=== PATIENT | male | born 1940 | race Caucasian/White ===

== ENCOUNTER 2018-07-02 01:15 | Inpatient (IN) | payer MEDICARE ==
[~2018-07-02] VITALS: Ht 190.5 cm; Wt 46.7 kg
[~2018-07-02 01:15] MED LIST: ALBU2.5V14 NEB; Albuterol Sulfate NEB; Amoxicillin/Potassium Clav PO; Fentanyl TD; HALOPERIDOL PO; HYDR-2761 PO; HYDR-3165 PO; HYDR12.575 PO; HYDR12.58 PO; Hydrocodone/Acetaminophen PO; LEVO500T59 PO; LISI10TA2 PO; METO-247 PO; METO-269 PO; MULT1TAB90 PO; Nicotine TD; PRED-220 PO; PRED20TA PO; SIMV20TA3 PO; TIOT18CA IH
[2018-07-02] MEDS ORDERED: fentaNYL PF VIAL 100 MCG/2 ML VIAL IV ONE (02:15)
--- NOTE | 2018-07-02 03:10 | RAD ---
INDICATION: trauma s/p fall rt sided COMPARISON: November 2013 TECHNIQUE: Axial CT images obtained through the head without intravenous contrast. One or more of the following individualized dose reduction techniques were utilized for this examination: 1. Automated exposure control; 2. Adjustment of the mA and/or kV according to patient size; 3. Use of iterative reconstruction technique. FINDINGS: No intracranial hemorrhage. No midline shift. Basal cisterns patents. Ventricles and sulci are globally prominent. No acute osseous abnormality. Orbits and paranasal sinuses unremarkable. Scattered foci of low attenuation within the white matter. There is a suspected small scalp hematoma frontally on the right IMPRESSION: 1. No acute intracranial hemorrhage. 2. Scattered regions of low attenuation within the white matter. Non-specific in nature but frequently secondary to chronic small vessel ischemic disease. 3. Prominence of ventricles and sulci which is frequently secondary to age related volume loss. Electronically signed by: Gilson Lynch MD (07/02/2018 3:07 AM) [facility]
[2018-07-02 03:12] LABS: BASO % 0 % (0-3); EOS % 0 % (0-3); HEMATOCRIT 31.9 % (39.0-53.0); HEMOGLOBIN 10.3 g/dL (13.0-17.5); LYMPH # 3.2 x10^3/uL (1.0-4.8); LYMPH % 26 % (24-48); MEAN CORPUSCULAR HEMOGLOBIN 32 pg (25-35); MEAN CORPUSCULAR HGB CONC 32 g/dL (31-37); MEAN CORPUSCULAR VOLUME 100 fL (79-100); MONO % 8 % (0-9); NEUT # 8.1 x10^3uL (1.8-7.7); NEUT % 66 % (31-73); PLATELET COUNT 266 x10^3/uL (140-400); RED BLOOD COUNT 3.18 x10^6/uL (4.30-5.70); WHITE BLOOD COUNT 12.4 x10^3/uL (4.0-11.0)
[2018-07-02 03:25] LABS: CALCIUM 9.6 mg/dL (8.5-10.1); CREATININE 1.4 mg/dL (0.7-1.3); GFR 49.3; POTASSIUM 5.2 mmol/L (3.5-5.1); PROTHROMBIN TIME PATIENT 12.9 SEC (11.7-14.0)
[2018-07-02 03:31] LABS: ALBUMIN 2.8 g/dL (3.4-5.0); ALBUMIN/GLOBULIN RATIO 0.7 (1.0-1.7); TOTAL BILIRUBIN 0.4 mg/dL (0.2-1.0); TOTAL PROTEIN 7.1 g/dL (6.4-8.2)
[2018-07-02] MEDS ORDERED: IV NORMAL SALINE 1000ML BAG 1,000 ML IV ONE (03:45)
--- NOTE | 2018-07-02 04:00 | PHYS DOC ---
Past Medical History Past Medical History: Asthma, CAD, Cancer, Hypertension Additional Past Medical Histor: 3 stent placements Past Surgical History: No Surgical History Additional Past Surgical Histo: 3 cardiac stents placed 10 years ago, skin flap skull 2 melanoma Additional Information: 20 CIGS /DAY Alcohol Use: None Additional Information: QIUT 2YRS AGO Drug Use: None Adult General Chief Complaint Chief Complaint: MECHANICAL FALL HPI HPI Patient is a 77 year old M BIBA with right hip pain. He's tripped over his own feet when he was trying to get into his car around 2 PM no syncope no chest pain he has mild stable shortness of breath that is unchanged he had been doing well recently no illnesses. He did hit his head no loss of consciousness. Complains of severe right hip pain worse with palpation and movement no a bdominal pain no neck pain Review of Systems Review of Systems Constitutional: Denies fever or chills [] Eyes: Denies change in visual acuity, redness, or eye pain [] HENT: Denies nasal congestion or sore throat [] Respiratory: Cardiovascular: No additional information not addressed in HPI [] GI: Denies abdominal pain, nausea, vomiting, bloody stools or diarrhea [] : Integument: Denies rash or skin lesions [] Neurologic: Denies headache, focal weakness or sensory changes [] All other systems were reviewed and found to be within normal limits, except as documented in this note. Current Medications Current Medications Current Medications Medications (Trade) Dose Ordered Sig/Tommie Start Time Stop Time Status Last Admin Dose Admin Fentanyl Citrate (Fentanyl 2ml Vial) 50 mcg PRN Q1HR PRN 07/02/18 04:00 07/03/18 03:59 UNV Sodium Chloride 1,000 ml @ 75 mls/hr 1X ONCE 07/02/18 03:45 07/02/18 17:04 Allergies Allergies Allergies Coded Allergies Type Severity Reaction Last Updated Verified morphine Adverse Reaction Intermediate 11/27/13 Yes Physical Exam Physical Exam Constitutional: Well developed, cachectic mild to moderate distress HENT: Normocephalic, atraumatic, bilateral external ears normal, oropharynx moist, no oral exudates, nose normal. [] Eyes: PERRLA, EOMI, conjunctiva normal, no discharge. [] Neck: Normal range of motion, no tenderness, supple, no stridor. [] Cardiovascular:Heart rate regular rhythm, no murmur [] Lungs & Thorax: Faint wheezes noted no chest wall trauma Abdomen: Bowel sounds normal, soft, no tenderness, no masses, no pulsatile masses. [] Skin: Warm, dry, no erythema, no rash. [] Back: No tenderness, no CVA tenderness. [] Extremities: There is a shortened and rotated right lower extremity tenderness at the right hip pedal pulses are intact sensation is grossly intact to light touch. Neurologic: Alert and oriented X 3, normal motor function, normal sensory function, no focal deficits noted. [] Psychologic: Affect normal, judgement normal, mood normal. [] Current Patient Data Vital Signs Vital Signs Date Time Temp Pulse Resp B/P (MAP) Pulse Ox O2 Delivery O2 Flow Rate FiO2 07/02/18 03:12 73 18 07/02/18 03:10 Room Air 07/02/18 01:25 98.0 191/77 (115) 90 98.0 Lab Values Laboratory Tests Test 07/02/18 03:00 White Blood Count 12.4 x10^3/uL (4.0-11.0) H Red Blood Count 3.18 x10^6/uL (4.30-5.70) L Hemoglobin 10.3 g/dL (13.0-17.5) L Hematocrit 31.9 % (39.0-53.0) L Mean Corpuscular Volume 100 fL (79-100) Mean Corpuscular Hemoglobin 32 pg (25-35) Mean Corpuscular Hemoglobin Concent 32 g/dL (31-37) Red Cell Distribution Width 15.0 % (11.5-14.5) H Platelet Count 266 x10^3/uL (140-400) Neutrophils (%) (Auto) 66 % (31-73) Lymphocytes (%) (Auto) 26 % (24-48) Monocytes (%) (Auto) 8 % (0-9) Eosinophils (%) (Auto) 0 % (0-3) Basophils (%) (Auto) 0 % (0-3) Neutrophils # (Auto) 8.1 x10^3uL (1.8-7.7) H Lymphocytes # (Auto) 3.2 x10^3/uL (1.0-4.8) Monocytes # (Auto) 1.0 x10^3/uL (0.0-1.1) Eosinophils # (Auto) 0.0 x10^3/uL (0.0-0.7) Basophils # (Auto) 0.0 x10^3/uL (0.0-0.2) Prothrombin Time 12.9 SEC (11.7-14.0) Prothrombin Time INR 1.0 (0.8-1.1) Sodium Level 144 mmol/L (136-145) Potassium Level 5.2 mmol/L (3.5-5.1) H Chloride Level 106 mmol/L (98-107) Carbon Dioxide Level 32 mmol/L (21-32) Anion Gap 6 (6-14) Blood Urea Nitrogen 29 mg/dL (8-26) H Creatinine 1.4 mg/dL (0.7-1.3) H Estimated GFR (Cockcroft-Gault) 49.3 BUN/Creatinine Ratio 21 (6-20) H Glucose Level 120 mg/dL (70-99) H Calcium Level 9.6 mg/dL (8.5-10.1) Total Bilirubin 0.4 mg/dL (0.2-1.0) Aspartate Amino Transferase (AST) 22 U/L (15-37) Alanine Aminotransferase (ALT) 21 U/L (16-63) Alkaline Phosphatase 58 U/L (46-116) Total Protein 7.1 g/dL (6.4-8.2) Albumin 2.8 g/dL (3.4-5.0) L Albumin/Globulin Ratio 0.7 (1.0-1.7) L Laboratory Tests 07/02/18 03:00 Laboratory Tests 07/02/18 03:00 EKG EKG []EKG shows a probably is normal sinus rhythm rate of 64 QRS is 140 left anterior fascicular block pattern no STEMI was identified Radiology/Procedures Radiology/Procedures []My interpretation of right hip showed fracture my interpretation of the chest x-ray showed no obvious pneumonia somewhat poor quality film there is a deep sulcus on the left but no pneumothorax was identified patient is not having any traumatic symptoms in that location Noted the head CT negative acute Impressions: IMPRESSION: 1. No acute intracranial hemorrhage. 2. Scattered regions of low attenuation within the white matter. Non-specific in nature but frequently secondary to chronic small vessel ischemic disease. 3. Prominence of ventricles and sulci which is frequently secondary to age related volume loss. Electronically signed by: Gilson Todd MD (07/02/2018 3:07 AM) [facility] Course & Med Decision Making Course & Med Decision Making Pertinent Labs and Imaging studies reviewed. (See chart for details) []Lab interpretation mild bump in the creatinine also mild bump in potassium both treated with gentle IV fluids. Hemoglobin stable blood count could be stress response from pain UA is pending. In summary this is a 77-year-old male cachectic history of cancer stent placement congestive heart failure broad and after mechanical fall found to have a right hip fracture. Remainder of the workup was nonacute at this time see above patient was treated with IV fentanyl in the emergency room with some improvement. Distal sensation was intact. Patient will be admitted to the service of Dr. Todd we have a page out to him at 4 AM as of this dictation. Consultation was placed in the computer for Dr. Medrano as well. Given patient's previous history likely will need medical clearance prior to emergency surgery. Dragon Disclaimer Dragon Disclaimer This electronic medical record was generated, in whole or in part, using a voice recognition dictation system. Departure Departure Impression: Primary Impression: Closed right hip fracture Disposition: ADMITTED INPATIENT Admitting Physician: Nikolay Todd Condition: STABLE Referrals: NIKOLAY TODD MD (PCP) MELANIE PAIGE MD Jul 02, 2018 04:00
[2018-07-02] MEDS: fentaNYL PF VIAL 100 MCG/2 ML VIAL IV PRN ×4 (04:12→15:29)
[2018-07-02 04:25] LABS: BILIRUBIN,URINE SMALL (NEG); CLARITY,URINE CLEAR; COLOR,URINE AMBER; NITRITE,URINE NEGATIVE (NEG); PROTEIN,URINE >=300 mg/dL (NEG-TRACE)
[2018-07-02] MEDS ORDERED: amLODIPine BESYLATE 5 MG TABLET PO ONE (04:30)
[2018-07-02 04:32] LABS: AMORPHOUS SEDIMENT,UR PRESENT /HPF; BACTERIA,URINE 0 /HPF (0-FEW); SQUAMOUS EPITHELIAL CELL,UR FEW /LPF
[2018-07-02 04:33] LABS: HYALINE CASTS, URINE MODERATE /HPF
[2018-07-02 05:22] VITALS: BP 179/63
--- NOTE | 2018-07-02 05:45 | NUR ---
The patient, MACK VALLES, 77 y/o, M admitted by NIKOLAY TODD MD, was given written information regarding hospital policies, unit procedures and contact persons. Patient was transported from ED to room 402 via bed. RN performed a head to toe assessment at that time, pain rated an 8/10. Bed is in lowest locked position, call light within reach. Valuables were checked and left in the room with patient.
[2018-07-02 07:00] VITALS: BP 147/61
--- NOTE | 2018-07-02 07:46 | RAD ---
Examination: PORTABLE CHEST 1V History: PRE-OP DUE TO FALL RT HIP PAIN Comparison/Correlation: 07/04/2015 portable chest x-ray exam Findings: Supine portable frontal view of the chest was obtained. Heart size is normal. No infiltrate or pleural effusion. Right upper lung field calcified granulomas present. No pneumothorax but the patient supine limiting assessment. Degenerative changes of the low thoracic upper lumbar spine noted. Lateral aspect of the left lower bony thorax was not fully included. Impression: No active disease. Electronically signed by: Junaid Guevara MD (07/02/2018 7:43 AM) [facility]
--- NOTE | 2018-07-02 08:13 | EKG ---
[facility] [address] [place] [address] Test Date: 2018-07-02 Test Time: 03:28:27 Pat Name: MACK VALLES Department: Room: 402 1 Gender: M [employer] Teacher: : 1940 Requested By: MELANIE PAIGE Order Number: [id number] Reading MD: John Campbell Measurements Intervals [place] Rate: 64 P: -75 OR: 144 QRS: -51 QRSD: 140 T: 103 QT: 404 QTc: 421 Interpretive Statements SINUS RHYTHM ABNORMAL LEFT AXIS DEVIATION LEFT ANTERIOR FASCICULAR BLOCK NON SPECIFIC INTRAVENTRICULAR BLOCK QRS(T) CONTOUR ABNORMALITY CONSISTENT WITH SEPTAL INFARCT PROBABLY OLD Electronically Signed On 07-09-2018 11:34:35 CDT by John Campbell
--- NOTE | 2018-07-02 08:36 | PDOC ---
Provider Note Provider Note [id number] NIKOLAY TODD MD Jul 02, 2018 08:36
--- NOTE | 2018-07-02 08:47 | RAD ---
AP view of the pelvis and two-view study of the right hip Clinical indications: Fall with right-sided hip pain FINDINGS: There is a comminuted intertrochanteric fracture of proximal right femur. The shaft is displaced laterally and superiorly with respect to the femoral head. 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 No other fracture of the pelvic bones is seen. No diastases of the symphysis pubis or either SI joint is seen. No lytic process is evident. IMPRESSION: Posttraumatic comminuted intertrochanteric fracture of the proximal right femur. Electronically signed by: Misha Yao MD (07/02/2018 8:44 AM) [facility]
[2018-07-02] MEDS: HYDROcodone/APAP 7.5/325MG 1 TAB TABLET PO SCH ×4 (09:00→21:00)
--- NOTE | 2018-07-02 09:19 | HP ---
ADMIT DATE: 07/02/2018 CHIEF COMPLAINT: Fall. HISTORY OF PRESENT ILLNESS: A 77-year-old white male with end-stage COPD, protein calorie malnutrition, hypertension and chronic pain disorder, presents with a fall and fractured right femoral neck. There are no other specific new problems. PAST HISTORY: ALLERGIES: MORPHINE. MEDICATIONS: Listed per the chart. He has mild cardiomyopathy from small vessel coronary artery disease and advanced COPD, chronic tobacco abuse. SOCIAL HISTORY: He is single, nondrinker, used to drink alcohol heavily, but stopped drinking. Nonsmoker just recently. FAMILY HISTORY: Unremarkable. REVIEW OF SYSTEMS: No other complaints. OBJECTIVE: ENT: Unremarkable. Dentures in place. NECK: Revealed no carotid bruits, nodes or masses. LUNGS: Clear with decreased breath sounds. CARDIOVASCULAR: Regular rate. No murmur or irregular beat. ABDOMEN: Scaphoid, benign and nontender. EXTREMITIES: Right leg is shortened and externally rotated. Distal pulses diminished in both feet. There is 2+ clubbing of the fingers. No acute changes. NEUROLOGIC: Physiologic, nonfocal. ASSESSMENT: 1. Fracture, right femoral neck. 2. Advanced chronic obstructive pulmonary disease. 3. Protein-calorie malnutrition, severe. 4. Small vessel coronary artery disease and dilated cardiomyopathy. PLAN: Comfort care, DNR. Surgical intervention and nutritional and pulmonary support. NIKOLAY TODD MD DR: NAA/roel JOB#: [id number] / [id number]
[2018-07-02] MEDS: METOPROLOL SUCC 24HR ER 100 MG TAB.ER.24H. PO SCH (09:49)
--- NOTE | 2018-07-02 10:07 | NUR ---
SW following for discharge planning. Discussed with RN, pt is from home with sister, having surgery today. SW will continue to follow for discharge planning.
[2018-07-02 11:00] VITALS: BP 182/60
[2018-07-02] MEDS: IPRATRPIUM/ALBUTEROL 0.5/2.5MG 3 ML NEBU. NEB SCH ×3 (11:59→19:40)
--- NOTE | 2018-07-02 12:39 | PDOC ---
Provider Note Provider Note consult received, chart and x-rays reviewed. Will plan surgery tomorrow morning. Rehydration today, and will recheck labs in am. Will do full consult ANNETTE. CHAVO MARTI MD Jul 02, 2018 12:39
[2018-07-02 15:00] VITALS: BP 155/49
--- NOTE | 2018-07-02 17:25 | RAD ---
RIGHT FEMUR XRAY Clinical Indication: EVALUATE DISTAL FEMUR FOR FRACTURE OR IMPLANT, PT HAS HIP FX. Comparison: AP pelvis and right hip, earlier same day. Findings: There is no acute fracture of the mid to distal femur. Probable degenerative changes of the knee. Scattered arterial calcification is seen. There is muscle atrophy. IMPRESSION: No acute fracture of the mid to distal femur. Electronically signed by: Alonso Castaneda MD (07/02/2018 5:22 PM) [id number]
[2018-07-02 19:00] VITALS: BP 166/49
[2018-07-02 23:00] VITALS: BP 158/57
[2018-07-03] VITALS (12 sets, daily range): BP systolic 148–188; BP diastolic 45–78
[2018-07-03] MEDS: fentaNYL PF VIAL 100 MCG/2 ML VIAL IV PRN (03:10)
[2018-07-03 05:59] LABS: CALCIUM 9.1 mg/dL (8.5-10.1); GFR 72.6
[2018-07-03] MEDS: IPRATRPIUM/ALBUTEROL 0.5/2.5MG 3 ML NEBU. NEB SCH ×4 (07:16→18:21)
[2018-07-03] MEDS: METOPROLOL SUCC 24HR ER 100 MG TAB.ER.24H. PO SCH (08:10)
--- NOTE | 2018-07-03 08:18 | PDOC ---
Provider Note Provider Note bp labile, will resume lisin now that K+ is better - poor nutrition will complicare recovery- for or today, rest same- no prn bp meds as risk > benefit NIKOLAY TODD MD Jul 03, 2018 08:18
[2018-07-03] MEDS ORDERED: IV RINGERS,LACTATED 1000ML 1,000 ML IV SCH (08:37)
[2018-07-03] MEDS ORDERED: fentaNYL PF VIAL 100 MCG/2 ML VIAL IV PRN ×3 (08:45→13:30)
[2018-07-03] MEDS ORDERED: ONDANSETRON PF 4 MG/2 ML VIAL. IV PRN ×2 (08:45→13:30)
[2018-07-03] MEDS ORDERED: PROCHLORPERAZINE 10 MG/2 ML VIAL. IV PRN (08:45)
[2018-07-03] MEDS: LISINOPRIL 10 MG TABLET PO SCH (09:00)
[2018-07-03] MEDS: HYDROcodone/APAP 7.5/325MG 1 TAB TABLET PO SCH ×4 (09:00→20:32)
[2018-07-03] MEDS ORDERED: TRANEXAMIC ACID 1,000 MG in IV NORMAL SALINE 50ML 50 ML INJ ONE ×2 (09:00→10:00)
--- NOTE | 2018-07-03 11:40 | NUR ---
SW following. Discussed with RN, pt did not have surgery yesterday, scheduled today. SW will continue to follow for any discharge planning needs.
[2018-07-03] MEDS ORDERED: fentaNYL PF VIAL 100 MCG/2 ML VIAL ONE ×2 (11:41→13:51)
[2018-07-03] MEDS ORDERED: PHENYLEPHRINE in 0.9% NACL PF 1 MG/10 ML SYRINGE. IV ONE ×2 (12:10→13:08)
[2018-07-03] MEDS ORDERED: ONDANSETRON PF 4 MG/2 ML VIAL. ONE (12:56)
[2018-07-03] MEDS ORDERED: PROPOFOL 20 ML IV ONE (12:56)
[2018-07-03] MEDS ORDERED: SEVOFLURANE 61 TO 120 MINUTES. IH ONE (12:56)
[2018-07-03] MEDS ORDERED: LIDOCAINE 2% PF 5 ML VIAL. ONE (12:56)
[2018-07-03] MEDS ORDERED: [UNRECOGNIZED DRUG - REMARK] INT ART ONE ×4 (13:00)
[2018-07-03] MEDS ORDERED: ePHEDrine PF IN SALINE 50 MG/10 ML SYRINGE. IV ONE (13:08)
[2018-07-03] MEDS: IV 1/2 NORMAL SALINE 1,000 ML IV SCH (13:19)
--- NOTE | 2018-07-03 13:19 | PDOC4 ---
Operative Note Operative Note Date of Procedure: July 03, 2018 Pre-Op Diagnosis: Displaced intertrochanteric fracture of right femur, initial encounter for closed fracture S72.141A Post-Op Diagnosis: same Procedure: right hip treatment of intertrochanteric femoral fracture with intramedullary implant, with interlocking screws, CPT 66978 Surgeon: Chavo Self MD Anesthesia Type: General EBL: 100 mL Specimens Obtained: none Complications: None Implant Company: [employer] Implants: Gamma 3 system Long Nail Kit R1.5 right 11 mm x 420 mm x 125 Gamma 3 system Lag Screw Titanium 10.5 mm x95 mm; locking screw fully threaded 5 mm x 50 mm INDICATION FOR PROCEDURE: This patient is 77 years old, and fell, sustaining a right hip fracture. X-rays show an unstable intertrochanteric hip fracture. The patient and I discussed the risks, benefits and alternatives of treatment. The alternative for treatment is bedrest, which I generally do not recommend. I recommended intramedullary nailing, and I talked to him about the potential risks of this, including bleeding, infection, blood clots, malunion, nonunion or other potential surgical or anesthetic complications. All of the questions about surgery were answered, and he desired to proceed. A written consent was obtained. PROCEDURE IN DETAIL: The patient was identified in the preoperative holding a fazal. The correct right hip was marked by me. The patient was taken to the operating room, where the patient was anesthetized by the Department of Anesthesia. Preoperative antibiotics were given intravenously. The HANA table was used and the well leg was placed in a padded lithotomy leg patel while the foot of the left leg was placed in a traction foot boot. A time-out procedure w as performed. The image intensifier was used, and a preliminary reduction performed. All of the images were interpreted intraoperatively by me, and the image intensifier was used throughout the case. The right hip area was prepared in sterile fashion with ChloraPrep solution and a sterile barrier Ioban hip drape was used. An incision was made over the superior aspect of the greater trochanter. A 3.2 mm guide pin was placed at the tip of the greater trochanter, and advanced into the intramedullary canal. The one step conical reamer was used over the guidewire, and a reamer sleeve was used to protect the soft tissues. A long guid e pin was placed down the intramedullary canal and the length was measured. The nail length was chosen based on that measurement. The canal was sequentially reamed for a long nail until intramedullary chatter occurred. The nail diameter was chosen based on the intramedullary chatter. The chosen nail was attached to the targeting device with the Nail Holding Screw. The nail was placed down the canal on the targeting device, and the guide wire was removed. A second incision was now used over the lower part of the greater trochanter, to place a guide pin through the guide, near the center-center position of the femoral head, and edmundo ured. The tunnel for the lag screw was reamed using the cannulated Lag Screw Step Drill. The chosen lag screw was inserted using the guide and advanced until there was a low tip-apex distance, by using sequential checks on the image intensifier. Traction on the HANA table was released. A Set Screw was now placed to lock the Lag Screw. Finally, a 5.0 mm diameter Distal Cross Lock Screw was placed distally near the knee, using a freehand technique and the image intensifier, after predrilling. Satisfactory fracture reduction and hardware position was obtained using image intensifier views in multiple planes. Copious irrigation was used and the fascia was closed with #1 Vicryl. Bovie electrocautery was used for hemostasis. I completed the closure with 2-0 Vicryl and erika. I used a multidrug injection for hemostasis and pain relief which includes ropivacaine, epinephrine, and mo rphine. A bulky sterile dressing was applied. The patient was gently transferred from the fracture table back to a hospital bed. There were no apparent complications. CHAVO SELF MD Jul 03, 2018 13:19
[2018-07-03] MEDS ORDERED: HYDROcodone/APAP 7.5/325MG 1 TAB TABLET PO PRN ×2 (13:30)
[2018-07-03] MEDS ORDERED: POLYETHYLENE GLYCOL 3350 17 GM PACKET. PO PRN (13:30)
[2018-07-03] MEDS ORDERED: DEXTROSE 50% 25 GM / 50ML DISP.SYRIN. IV PRN (13:30)
[2018-07-03] MEDS ORDERED: oxyCODONE IR 5 MG TABLET PO PRN (13:30)
[2018-07-03] MEDS ORDERED: LABETALOL 20 MG/4 ML DISP.SYRIN. IVP ONE (14:00)
[2018-07-03] MEDS: SENNOSIDES/DOCUSATE 8.6/50MG TABLET. PO SCH (14:00)
[2018-07-03] MEDS ORDERED: LABETALOL 20 MG/4 ML DISP.SYRIN. IVP PRN (14:00)
[2018-07-03] MEDS: ASPIRIN ENTERIC COATED 325 MG TABLET.DR. PO SCH (20:31)
[2018-07-04] MEDS: IV 1/2 NORMAL SALINE 1,000 ML IV SCH (02:39)
[2018-07-04 03:00] VITALS: BP 140/50
[2018-07-04] MEDS ORDERED: MAGNESIUM HYDROXIDE 2,400 MG/30 ML ORAL.SUSP. PO PRN (06:00)
[2018-07-04 07:00] VITALS: BP 148/50
[2018-07-04] MEDS: IPRATRPIUM/ALBUTEROL 0.5/2.5MG 3 ML NEBU. NEB SCH ×3 (07:19→15:01)
--- NOTE | 2018-07-04 08:59 | PDOC ---
Provider Note Provider Note good apetite, vss, no temp- loose cough but cxr clear- will add xarelto short term re dvt proph, will need rehab NIKOLAY TODD MD Jul 04, 2018 08:59
[2018-07-04] MEDS ORDERED: CELECOXIB 100 MG CAPSULE. PO SCH (09:00)
[2018-07-04] MEDS ORDERED: CHOLECALCIFEROL (VITAMIN D3) 1,000 UNIT TABLET PO SCH (09:00)
[2018-07-04] MEDS ORDERED: MULTIVITAMIN with MINERAL TABLET. PO SCH (09:00)
[2018-07-04] MEDS: HYDROcodone/APAP 7.5/325MG 1 TAB TABLET PO SCH ×3 (09:01→17:05)
[2018-07-04] MEDS: METOPROLOL SUCC 24HR ER 100 MG TAB.ER.24H. PO SCH (09:02)
[2018-07-04] MEDS: LISINOPRIL 10 MG TABLET PO SCH (09:02)
[2018-07-04] MEDS: SENNOSIDES/DOCUSATE 8.6/50MG TABLET. PO SCH (09:02)
[2018-07-04] MEDS: ASPIRIN ENTERIC COATED 325 MG TABLET.DR. PO SCH (09:02)
--- NOTE | 2018-07-04 10:38 | NUR ---
SW following. Discussed with RN. SW awaiting PT/OT recommendations for discharge planning. SW will continue to follow.
[2018-07-04 11:00] VITALS: BP 131/43
[2018-07-04 14:20] LABS: HEMATOCRIT 26.2 % (39.0-53.0); HEMOGLOBIN 8.4 g/dL (13.0-17.5)
--- NOTE | 2018-07-04 14:24 | NUR ---
Cough noted after pt drinking. Dr. Lynch notified, orders received.
[2018-07-04 15:00] VITALS: BP 127/36
[2018-07-04] MEDS: ANTI-COAG MONITOR BY PHARMACY. MC PRN ×2 (15:21→15:23)
[2018-07-04] MEDS ORDERED: BISACODYL 10 MG SUPP.RECT. PR PRN (16:00)
[2018-07-04] MEDS ORDERED: RIVAROXABAN 10 MG TABLET. PO SCH (17:00)
--- NOTE | 2018-07-04 17:02 | PDOC2 ---
CONSULT Date of Consult Date of Consult 07/03/18. The patient was seen and consultation performed in the morning on 07/03/18. The chart entry is late. 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 He tripped over his feet while trying to get into his car. Past Medical History Cardiovascular: CAD, HTN, CO Pulmonary: Asthma, COPD, Pneumonia CENTRAL NERVOUS SYSTEM: Other GI: GERD Heme/Onc: Cancer Hepatobiliary: Other Psych: Depression Musculoskeletal: low back pain Rheumatologic: No pertinent hx Infectious disease: No pertinent hx Renal/: No pertinent hx Endocrine: No pertinent hx Past Surgical History Past Surgical History: Tonsillectomy, Other Family History Family History: Cancer Social History ALCOHOL: none Drugs: None Lives: with Family Current Problem List Problem List Problems Medical Problems: (1) Closed right hip fracture Status: Acute Current Medications Current Medications Current Medications Fentanyl Citrate (Fentanyl 2ml Vial) 50 mcg 1X ONCE IV Last administered on 07/02/18at 03:10; Start 07/02/18 at 02:15; Stop 07/02/18 at 02:16; Status DC Sodium Chloride 1,000 ml @ 75 mls/hr 1X ONCE IV Last administered on 07/02/18at 05:39; Start 07/02/18 at 03:45; Stop 07/02/18 at 17:04; Status DC Fentanyl Citrate (Fentanyl 2ml Vial) 50 mcg PRN Q1HR PRN IV PAIN Last administered on 07/03/18at 03:10; Start 07/02/18 at 04:00; Stop 07/03/18 at 03:59; Status DC Amlodipine Besylate (Norvasc) 10 mg 1X ONCE PO Last administered on 07/02/18at 04:39; Start 07/02/18 at 04:30; Stop 07/02/18 at 04:31; Status DC Acetaminophen/ Hydrocodone Bitart (Lortab 7.5/325) 1 tab QID PO Last administered on 07/04/18at 14:03; Start 07/02/18 at 09:00 Metoprolol Succinate (Toprol Xl) 100 mg DAILY PO Last administered on 07/04/18at 09:02; Start 07/02/18 at 09:00 Albuterol/ Ipratropium (Duoneb) 3 ml RTQID NEB Last administered on 07/04/18at 15:01; Start 07/02/18 at 09:00 Lisinopril (Prinivil) 10 mg DAILY PO Last administered on 07/04/18at 09:02; Start 07/03/18 at 09:00 Ondansetron HCl (Zofran) 4 mg PRN Q6HRS PRN IV NAUSEA/VOMITING; Start 07/03/18 at 08:45; Stop 07/04/18 at 08:44; Status DC Fentanyl Citrate (Fentanyl 2ml Vial) 25 mcg PRN Q5MIN PRN IV MILD PAIN Last administered on 07/03/18at 13:54; Start 07/03/18 at 08:45; Stop 07/04/18 at 08:44; Status DC Fentanyl Citrate (Fentanyl 2ml Vial) 50 mcg PRN Q5MIN PRN IV MODERATE TO SEVERE PAIN; Start 07/03/18 at 08:45; Stop 07/04/18 at 08:44; Status DC Ringer's Solution 1,000 ml @ 30 mls/hr Q24H IV Last administered on 07/03/18at 11:04; Start 07/03/18 at 08:37; Stop 07/03/18 at 20:36; Status DC Prochlorperazine Edisylate (Compazine) 5 mg PACU PRN PRN IV NAUSEA, MRX1; Start 07/03/18 at 08:45; Stop 07/04/18 at 08:44; Status DC Cefazolin Sodium/ Dextrose 50 ml @ 100 mls/hr 1X PREOP PRN IV comm Last administered on 07/03/18at 12:16; Start 07/03/18 at 09:00; Stop 07/04/18 at 15:23; Status DC Tranexamic Acid 1000 mg/Sodium Chloride 60 ml @ 60 mls/hr 1X ONCE INJ Last administered on 07/03/18at 12:38; Start 07/03/18 at 09:00; Stop 07/03/18 at 09:59; Status DC Tranexamic Acid 1000 mg/Sodium Chloride 60 ml @ 60 mls/hr 1X ONCE INJ Last administered on 07/03/18at 13:17; Start 07/03/18 at 10:00; Stop 07/03/18 at 10:59; Status DC Cefazolin Sodium 50 ml @ As Directed STK-MED ONCE IV ; Start 07/03/18 at 11:21; Stop 07/03/18 at 11:22; Status DC Fentanyl Citrate (Fentanyl 2ml Vial) 100 mcg STK-MED ONCE .ROUTE ; Start 07/03/18 at 11:41; Stop 07/03/18 at 11:42; Status DC Ropivacaine 53.3 ml/Epinephrine HCl 0.6 mg/ Morphine Sulfate 5 mg/Sodium Chloride 100 ml @ 100 mls/hr 1X ONCE INT ART ; Start 07/03/18 at 13:00; Stop 07/03/18 at 13:59; Status DC Phenylephrine HCl (PHENYLEPHRINE in 0.9% NACL PF) 1 mg STK-MED ONCE IV ; Start 07/03/18 at 12:10; Stop 07/03/18 at 12:11; Status DC Propofol 20 ml @ As Directed STK-MED ONCE IV ; Start 07/03/18 at 12:56; Stop 07/03/18 at 12:57; Status DC Lidocaine HCl (Lidocaine Pf 2% Vial) 5 ml STK-MED ONCE .ROUTE ; Start 07/03/18 at 12:56; Stop 07/03/18 at 12:57; Status DC Sevoflurane (Ultane) 60 ml STK-MED ONCE IH ; Start 07/03/18 at 12:56; Stop 07/03/18 at 12:57; Status DC Ondansetron HCl (Zofran) 4 mg STK-MED ONCE .ROUTE ; Start 07/03/18 at 12:56; Stop 07/03/18 at 12:57; Status DC Phenylephrine HCl (PHENYLEPHRINE in 0.9% NACL PF) 1 mg STK-MED ONCE IV ; Start 07/03/18 at 13:08; Stop 07/03/18 at 13:09; Status DC Ephedrine Sulfate (ePHEDrine PF IN SALINE SYRINGE) 50 mg STK-MED ONCE IV ; Start 07/03/18 at 13:08; Stop 07/03/18 at 13:09; Status DC Oxycodone HCl (Roxicodone) 5 mg PRN Q3HRS PRN PO PAIN Last administered on 07/04/18at 02:22; Start 07/03/18 at 13:30 Fentanyl Citrate (Fentanyl 2ml Vial) 25 mcg PRN Q1HR PRN IV PAIN; Start 07/03/18 at 13:30 Multivitamins (Thera M Plus) 1 tab DAILY PO Last administered on 07/04/18at 09:01; Start 07/04/18 at 09:00 Senna/Docusate Sodium (Senna Plus) 1 tab DAILY PO Last administered on 07/04/18at 09:02; Start 07/03/18 at 14:00 Polyethylene Glycol (miraLAX PACKET) 17 gm PRN DAILY PRN PO CONSTIPATION; Start 07/03/18 at 13:30 Celecoxib (CeleBREX) 200 mg DAILY PO Last administered on 07/04/18at 09:02; Start 07/04/18 at 09:00 Vitamin D (Vitamin D3) 1,000 unit DAILY PO Last administered on 07/04/18at 09:02; Start 07/04/18 at 09:00 Sodium Chloride 1,000 ml @ 75 mls/hr [id number] IV ; Start 07/03/18 at 13:19; Stop 07/04/18 at 08:58; Status DC Ondansetron HCl (Zofran) 4 mg PRN Q4HRS PRN IV NAUSEA/VOMITING; Start 07/03/18 at 13:30 Magnesium Hydroxide (Milk Of Magnesia) 2,400 mg 1X PRN PRN PO CONSTIPATION; Start 07/04/18 at 06:00; Stop 07/05/18 at 05:59 Bisacodyl (Dulcolax Supp) 10 mg 1X PRN PRN OR CONSTIPATION; Start 07/04/18 at 16:00; Stop 07/05/18 at 15:59 Acetaminophen/ Hydrocodone Bitart (Lortab 7.5/325) 1 tab PRN Q4HRS PRN PO PAIN; Start 07/03/18 at 13:30 Acetaminophen/ Hydrocodone Bitart (Lortab 7.5/325) 2 tab PRN Q4HRS PRN PO PAIN Last administered on 07/04/18at 04:05; Start 07/03/18 at 13:30 Dextrose (Dextrose 50%-Water Syringe) 12.5 gm PRN Q15MIN PRN IV SEE COMMENTS; Start 07/03/18 at 13:30 Cefazolin Sodium/ Dextrose 50 ml @ 100 mls/hr Q6H IV Last administered on 07/04/18at 07:13; Start 07/03/18 at 18:00; Stop 07/04/18 at 06:29; Status DC Aspirin (Ecotrin) 325 mg BID PO Last administered on 07/04/18at 09:02; Start 07/03/18 at 21:00 Labetalol HCl (Normodyne Iv Push) 10 mg PRN Q10MIN PRN IVP HYPERTENSION, SEE COMMENTS; Start 07/03/18 at 14:00 Labetalol HCl (Normodyne Iv Push) 10 mg ONCE ONCE IVP ; Start 07/03/18 at 14:00; Stop 07/03/18 at 14:01; Status DC Fentanyl Citrate (Fentanyl 2ml Vial) 100 mcg STK-MED ONCE .ROUTE ; Start at 13:51; Stop 07/03/18 at 13:52; Status DC Rivaroxaban (Xarelto) 10 mg DAILYWSUP PO ; Start 07/04/18 at 17:00 Info (Anti-Coagulation Monitoring By Pharmacy) 1 each PRN DAILY PRN MC SEE COMMENTS Last administered on 07/04/18at 15:23; Start 07/04/18 at 09:15 Active Scripts Active Lisinopril 10 Mg Tablet 20 Mg PO DAILY Thera-M Tablet (Multivits,Ca,Minerals/Iron/Fa) 1 Tab Tablet 1 Tab PO [id number] Reported Metoprolol Succinate ( Xl ) (Metoprolol Succinate) 100 Mg Tab.er.24h 100 Mg PO DAILY Albuterol Sulfate Conc Neb Soln (Albuterol Sulfate) 2.5 Mg/0.5 Ml Vial.neb 2.5 Mg NEB QID [place] 7.5-325 Tablet (Acetaminophen/Hydrocodone Bitart) 1 Each Tablet 1 Tab PO QID Allergies Allergies: Coded Allergies: No Known Drug Allergies (Unverified , 07/03/18) Pt clarified with this nurse ROS Review of System The patient describes a severe unexplained weight loss over the last year. I believe he said he lost nearly 100 pounds. He reports having a colonoscopy and a chest x-ray to look for a source of the weight loss and nothing has so far been found. General: No: Chills, Night Sweats Eyes: No Blurry vision, No Double vision HEENT: No: Heacaches, Visual Changes ENDOCRINE: YES: Unexpected Weight Changes Respiratory: YES: Cough Cardiovascular: No Chest Pain Gastrointestinal: No Nausea, No Vomiting, No Diarrhea Genitourinary: No Dysuria, No Hematuria Musculoskeletal: Yes Joint Pain Physical Exam General: Alert, Cooperative HEENT: Other (abrasion/contusion right forehead) Lungs: Other (frequent coughing) Heart: Regular rate Abdomen: Soft, No tenderness Extremities: No clubbing, Other (shortened and externally rotated right hip. Severe pain with any inadvertent motion. Skin intact over the fracture. He can dorsiflex and plantarflex the toes without difficulty. Sensation intact distally. Pulses difficult to palpate but capillary refill adequate.) Skin: No significant lesion Neuro: Normal speech, Sensation intact MUSCULOSKELETAL: Abnormal exam of right (hip as above. The left lower extremity, and bilateral upper extremities show normal alignment, no crepitus or deformity, no tenderness, normal strength, normal sensation.) Vitals VITALS Vital Signs Date Time Temp Pulse Resp B/P (MAP) Pulse Ox O2 Delivery O2 Flow Rate FiO2 07/04/18 15:05 Nasal Cannula 3.0 07/04/18 15:00 97.7 65 18 127/36 (66) 88 97.7 Labs Labs Laboratory Tests Test 07/03/18 03:00 07/04/18 13:29 Sodium Level 143 mmol/L (136-145) Potassium Level 4.0 mmol/L (3.5-5.1) Chloride Level 107 mmol/L (98-107) Carbon Dioxide Level 28 mmol/L (21-32) Anion Gap 8 (6-14) Blood Urea Nitrogen 28 mg/dL (8-26) Creatinine 1.0 mg/dL (0.7-1.3) Estimated GFR (Cockcroft-Gault) 72.6 Glucose Level 87 mg/dL (70-99) Calcium Level 9.1 mg/dL (8.5-10.1) 25-Hydroxy Vitamin D Total 41.4 ng/mL (30-100) Hemoglobin 8.4 g/dL (13.0-17.5) Hematocrit 26.2 % (39.0-53.0) Mean Corpuscular Hemoglobin Concent 32 g/dL (31-37) Laboratory Tests Test 07/04/18 13:29 Hemoglobin 8.4 g/dL (13.0-17.5) Hematocrit 26.2 % (39.0-53.0) Mean Corpuscular Hemoglobin Concent 32 g/dL (31-37) Images Images Report reviewed, images independently reviewed. Extensively comminuted right intertrochanteric hip fracture. I see no evidence of neoplasm. Chest x-ray like dougherty did not show neoplasm or obvious source for weight loss. [id number] [place] [address] IMAGING REPORT Signed PATIENT: MACK VALLES ACCOUNT: [id number] : 1940 LOCATION: [address] [place] [address] AGE: 77 SEX: M EXAM STATUS: ADM IN ORD. PHYSICIAN: MELANIE PAIGE MD REASON: trauma/preop PROCEDURE: HIP RIGHT 2V WITH PELVIS AP view of the pelvis and two-view study of the right hip Clinical indications: Fall with right-sided hip pain FINDINGS: There is a comminuted intertrochanteric fracture of proximal right femur. The shaft is displaced laterally and superiorly with respect to the femoral head. 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 No other fracture of the pelvic bones is seen. No diastases of the symphysis pubis or either SI joint is seen. No lytic process is evident. IMPRESSION: Posttraumatic comminuted intertrochanteric fracture of the proximal right femur. Electronically signed by: Madeline Yao MD (07/02/2018 8:44 AM) [place] [id number] DICTATED and SIGNED BY: MADELINE YAO MD DATE: 07/02/18 0844 [id number] [place], [place] [id number] IMAGING REPORT Signed PATIENT: MACK VALLES ACCOUNT: [id number] : 1940 LOCATION: [address] [place] [address] AGE: 77 SEX: M EXAM STATUS: ADM IN ORD. PHYSICIAN: MELANIE PAIGE MD REASON: preop PROCEDURE: PORTABLE CHEST 1V Examination: PORTABLE CHEST 1V History: PRE-OP DUE TO FALL RT HIP PAIN Comparison/Correlation: 07/04/2015 portable chest x-ray exam Findings: Supine portable frontal view of the chest was obtained. Heart size is normal. No infiltrate or pleural effusion. Right upper lung field calcified granulomas present. No pneumothorax but the patient supine limiting assessment. Degenerative changes of the low thoracic upper lumbar spine noted. Lateral aspect of the left lower bony thorax was not fully included. Impression: No active disease. Electronically signed by: Junaid Li MD (07/02/2018 7:43 AM) [facility] DICTATED and SIGNED BY: JUNAID LI MD DATE: 07/02/18 0743 Assessment/Plan Assessment/Plan Closed right hip comminuted intertrochanteric fracture, displaced. He normally is an ambulator, he has a walker but doesn't use it very much. I recommended internal fixation with intramedullary nail. He and I discussed the potential risks of malunion or nonunion, need for further surgery, hardware failure, bleeding, infection, blood clots, or other potential surgical or anesthetic complications. All of his questions about surgery were answered and he desires to proceed. CHAVO MARTI MD Jul 04, 2018 17:02
--- NOTE | 2018-07-04 18:31 | NUR ---
Pt rounds done, pt found unresponsive sitting up in bed, color ashen, gasping noted. Unable to obtain BP or pulse. Helene,[facility] nursing building custodial supervisor at called to bedside. Pt. a DNR. pronouncement verfied with 2RNs. Dr. Lynch notified.
--- NOTE | 2018-07-04 18:50 | NUR ---
Pt's daughter Clau notified, stated she would inform pt's sister. Unable to reach her at this time.
--- NOTE | 2018-07-04 21:00 | DS ---
DATE OF DISCHARGE: 07/04/2018 HOSPITAL SUMMARY: The patient came in with advanced COPD and severe malnutrition and had a right femoral neck fracture. He underwent operative repair per Dr. Self and did well postoperatively and was eating and drinking on the morning after surgery and looking well for him. Twelve hours later, he was found by the nursing staff and what have been clearly appeared to be a natural . FINAL DIAGNOSES: 1. Femoral neck fracture, right. 2. Cardiopulmonary arrest, fatal. 3. Protein-calorie malnutrition, severe. 4. Advanced chronic obstructive pulmonary disease. OPERATIONS AND PROCEDURES: Operative repair of the femoral neck fracture. COMPLICATIONS: None. CONSULTATIONS: Dr. Self. DISPOSITION: Released to the family's home. No postmortem examination was requested. He was a DNR patient. NIKOLAY TODD MD DR: NAA/nts JOB#: [id number] / [id number]
--- NOTE | 2018-07-06 12:58 | PDOC ---
PROGRESS NOTES Subjective Subjective late entry, I saw the patient about 3:00 p.m. on Saturday while making rounds. Surprised to hear at 7:30 that he had . He looked well when I spoke to him, was sitting in the reclining chair, and said that his hip fracture felt much better after surgery. He was smiling, relatively talkative, even joking a bit. No signs of distress when I saw him. I was back at the nursing station after I saw him, and a couple of his family members walked into his room, a brunette woman and a blonde woman. In the evening, before I even had entered my chart note, the floor notified me that he had . Objective Vital Signs Vital Signs Date Time Temp Pulse Resp B/P (MAP) Pulse Ox O2 Delivery O2 Flow Rate FiO2 07/04/18 17:05 Nasal Cannula 3.0 07/04/18 15:00 97.7 65 18 127/36 (66) 88 97.7 Physical Exam He was sitting in a reclining chair when I saw him. The right hip dressing was dry. He was able to dorsiflex and plantarflex the toes. There is no sign of DVT. The right limb alignment appears normal, with no rotational deformity or shortening. He did not appear short of breath and appeared much better than he had preoperatively. He was smiling and joking a bit. Labs Laboratory Tests Test 07/04/18 13:29 Hemoglobin 8.4 g/dL (13.0-17.5) Hematocrit 26.2 % (39.0-53.0) Mean Corpuscular Hemoglobin Concent 32 g/dL (31-37) Assessment Assessment POD#1 after hip ORIF Plan Plan of Care I received a text message on Saturday evening at 7:25 PM that he had , several hours after I saw him. CHAVO MARTI MD Jul 06, 2018 12:58
== END 2018-07-04 19:30 | disposition expired | DRG 480 ==
LOC: ER 01:15 → 4 NORTH 04:00
PROVIDERS: ADMIT Family Medicine; ATTEND Family Medicine
PROC: 0QS636Z Reposition Right Upper Femur with Intramedullary Internal Fixation Device, Percutaneous Approach (ICD-10-PCS; principal; 2018-07-03 11:30)
DX: S72.141A Displaced intertrochanteric fracture of right femur, initial encounter for closed fracture (principal); E43 Unspecified severe protein-calorie malnutrition; I42.0 Dilated cardiomyopathy; Z68.1 Body mass index [BMI] 19.9 or less, adult; I46.9 Cardiac arrest, cause unspecified; J44.9 Chronic obstructive pulmonary disease, unspecified; I10 Essential (primary) hypertension; G89.29 Other chronic pain; I25.10 Atherosclerotic heart disease of native coronary artery without angina pectoris; F32.9 Major depressive disorder, single episode, unspecified; K21.9 Gastro-esophageal reflux disease without esophagitis; Z66 Do not resuscitate; Z95.5 Presence of coronary angioplasty implant and graft; Z85.820 Personal history of malignant melanoma of skin; W18.39XA Other fall on same level, initial encounter; Y93.89 Activity, other specified; Y92.89 Other specified places as the place of occurrence of the external cause; Y99.8 Other external cause status
CPT/HCPCS: 36415; 70450; 71045; 73502; 73552; 76000; 80048; 80053; 81001; 82306; 85014; 85018; 85025; 85610; 86850; 86900; 86901; 87641; 93005; 94640; 94760; A7015; C1713; C1887; J0171; J0690; J0696; J2001; J2270; J2370; J2405; J2704; J2795; J3010; J7030; J7120; J7620; 97110; 97116; 99285-25